=== PATIENT | female | born 1995 | race Caucasian/White ===

== ENCOUNTER 2017-10-14 18:03 | Outpatient (CLI) | payer BC ==
[2017-10-14 19:13] LABS: ADD UMIC YES; UR ASCORBIC ACID NEGATIVE (NEGATIVE); UR BACTERIA FEW /HPF (NONE SEEN); UR BILIRUBIN (Dip) NEGATIVE (NEGATIVE); UR BLOOD (Dip) NEGATIVE (NEGATIVE); UR BUDDING YEAST FEW /HPF (NONE SEEN); UR CALCIUM OXALATE CRYSTAL FEW /HPF (NONE SEEN); UR CLARITY CLOUDY (CLEAR); UR COLOR AMBER (YELLOW); UR GLUCOSE (Dip) NEGATIVE (NEGATIVE); UR KETONES (Dip) NEGATIVE (NEGATIVE); UR LEUKOCYTE ESTERASE (Dip) 3+ Leu/ul (NEGATIVE); UR MUCUS MODERATE /HPF (NONE SEEN); UR NITRITE (Dip) NEGATIVE (NEGATIVE); UR RBC 31 /HPF (0-5); UR SPECIFIC GRAVITY (Dip) 1.029 (1.003-1.030); UR SQUAMOUS EPITHELIAL CELL MANY /HPF (FEW); UR TOTAL PROTEIN (Dip) 1+ mg/dl (NEGATIVE); UR UROBILINOGEN (Dip) 1+ mg/dL (NEGATIVE); UR WBC 121 /HPF (0-5)
[2017-10-14] MEDS: LACTATED RINGER'S 1,000 ML IV (20:41)
[2017-10-14] MEDS: CEFAZOLIN 2 GM/50 ML (PMX) 50 ML IVPB (21:22)
[2017-10-14] MEDS ORDERED: LACTATED RINGER'S 1,000 ML IV (21:30)
[2017-10-14] MEDS ORDERED: TERBUTALINE 1 ML (23:48)
[2017-10-14] MEDS: TERBUTALINE 1 MG/ML INJ SC (23:54)
== END 2017-10-15 01:02 | disposition home or self-care (01) ==
LOC: OBT 18:03 → L-D 18:04
DX: O23.43 Unspecified infection of urinary tract in pregnancy, third trimester (principal); O36.8130 Decreased fetal movements, third trimester, not applicable or unspecified; O47.1 False labor at or after 37 completed weeks of gestation; Z3A.30 30 weeks gestation of pregnancy
CPT/HCPCS: 36415; 76817; 76818; 81001; 87086; 96360; 96361; 96372

== ENCOUNTER 2017-11-21 11:58 | Inpatient (IN) | payer BC ==
[2017-11-21] MEDS ORDERED: LIDOCAINE 1% (MPF) 30 ML INJ INJ (16:30)
[2017-11-21] MEDS ORDERED: MISOPROSTOL 200 MCG TAB PR (16:30)
[2017-11-21] MEDS ORDERED: IBUPROFEN 600 MG TAB PO (16:30)
[2017-11-21] MEDS ORDERED: BUTORPHANOL 2 MG INJ IV (16:30)
[2017-11-21] MEDS ORDERED: CARBOPROST 250 MCG INJ IM (16:30)
[2017-11-21] MEDS ORDERED: METHYLERGONOVINE 0.2 MG INJ IM (16:30)
[2017-11-21] MEDS ORDERED: OXYTOCIN 30 UNITS/LR 500 ML IV ×3 (16:30)
[2017-11-21] MEDS ORDERED: AMPICILLIN 2 GM/NS (PMX) 100 ML IV (16:30)
[2017-11-21 17:05] LABS: ADD MAN DIFF? NO
[2017-11-21] MEDS: LACTATED RINGER'S 1,000 ML IV* ×2 (17:06→20:12)
[2017-11-21 17:08] LABS: WHITE BLOOD COUNT 10.3 10^3/ul (4.8-10.8)
[2017-11-21 17:08] LABS: BASOPHILS % 0.2 % (0.0-2.0); EOSINOPHILS % 0.4 % (0.0-7.0); HEMATOCRIT 35.9 % (37.0-47.0); HEMOGLOBIN 11.5 g/dl (12.0-16.0); LYMPHOCYTES # 1.8 10^3/ul (0.8-2.9); LYMPHOCYTES % 17.7 % (15.0-51.0); MEAN CORPUSCULAR HEMOGLOBIN 25.3 pg (29.0-33.0); MEAN CORPUSCULAR VOLUME 78.9 fl (82.0-101.0); MEAN PLATELET VOLUME 11.9 fl (7.4-10.4); MONOCYTE # 0.5 10^3/ul (0.3-0.9); MONOCYTES % 4.8 % (0.0-11.0); NEUTROPHIL # 7.9 10^3/ul (1.6-7.5); NEUTROPHILS % 76.5 % (39.0-77.0); PLATELET COUNT 293 10^3/UL (140-415); RED BLOOD COUNT 4.55 10^6/ul (4.20-5.40); RED CELL DISTRIBUTION WIDTH 15.4 % (11.5-14.5)
[2017-11-21 17:27] LABS: INR 0.93; PROTIME 12.5 Sec (11.9-14.9)
[2017-11-21 17:28] LABS: PARTIAL THROMBOPLASTIN TIME 30.4 Sec (25.0-35.0)
[2017-11-21] MEDS ORDERED: AMPICILLIN 1 GM/NS (PMX) 50 ML IV (20:30)
[2017-11-22] MEDS: LACTATED RINGER'S 1,000 ML IV* (01:12)
[2017-11-22 08:35] LABS: HEPATITIS B SURFACE ANTIGEN NEGATIVE (NEGATIVE)
[2017-11-22 15:16] LABS: RAPID PLASMA REAGIN NONREACTIVE (NR)
== END 2017-11-22 12:15 | disposition home or self-care (01) | DRG 782 ==
LOC: OBT 11:58 → L-D 11:58 → OBT 15:50 → L-D 15:50
PROVIDERS: Obstetrics & Gynecology
DX: O41.03X0 Oligohydramnios, third trimester, not applicable or unspecified (principal); Z3A.39 39 weeks gestation of pregnancy
CPT/HCPCS: 76815; 76816; 76818; 85025; 85610; 85730; 86592; 86900; 86901; 87340

== ENCOUNTER 2017-11-25 21:24 | Inpatient (IN) | payer BC ==
[2017-11-25] MEDS ORDERED: BUTORPHANOL 2 MG INJ IV (22:00)
[2017-11-25] MEDS ORDERED: CARBOPROST 250 MCG INJ IM (22:00)
[2017-11-25] MEDS ORDERED: MISOPROSTOL 200 MCG TAB PR (22:00)
[2017-11-25] MEDS ORDERED: METHYLERGONOVINE 0.2 MG INJ IM (22:00)
[2017-11-25] MEDS ORDERED: OXYTOCIN 30 UNITS/LR 500 ML IV ×2 (22:00→23:00)
[2017-11-25] MEDS ORDERED: LIDOCAINE 1% (MPF) 30 ML INJ INJ (22:00)
[2017-11-25] MEDS: LACTATED RINGER'S 1,000 ML IV* ×2 (22:00)
[2017-11-25] MEDS ORDERED: OXYCODONE/ASPIRIN (4.88/325) TAB PO (23:00)
[2017-11-25] MEDS ORDERED: IBUPROFEN 600 MG TAB PO (23:00)
[2017-11-25 23:03] LABS: ADD MAN DIFF? NO
[2017-11-25 23:10] LABS: BASOPHILS % 0.2 % (0.0-2.0); EOSINOPHILS % 0.1 % (0.0-7.0); HEMATOCRIT 33.8 % (37.0-47.0); HEMOGLOBIN 11.1 g/dl (12.0-16.0); LYMPHOCYTES # 2.1 10^3/ul (0.8-2.9); LYMPHOCYTES % 22.7 % (15.0-51.0); MEAN CORPUSCULAR HEMOGLOBIN 26.1 pg (29.0-33.0); MEAN CORPUSCULAR HGB CONC 32.8 g/dl (32.0-37.0); MEAN CORPUSCULAR VOLUME 79.3 fl (82.0-101.0); MEAN PLATELET VOLUME 11.7 fl (7.4-10.4); MONOCYTE # 0.6 10^3/ul (0.3-0.9); MONOCYTES % 6.5 % (0.0-11.0); NEUTROPHIL # 6.5 10^3/ul (1.6-7.5); NEUTROPHILS % 70.2 % (39.0-77.0); PLATELET COUNT 250 10^3/UL (140-415); RED BLOOD COUNT 4.26 10^6/ul (4.20-5.40)
[2017-11-25 23:10] LABS: WHITE BLOOD COUNT 9.2 10^3/ul (4.8-10.8)
[2017-11-25] MEDS: AMPICILLIN 2 GM/NS (PMX) 100 ML IV (23:18)
[2017-11-25 23:30] LABS: INR 0.93; PROTIME 12.5 Sec (11.9-14.9)
[2017-11-25 23:31] LABS: PARTIAL THROMBOPLASTIN TIME 30.1 Sec (25.0-35.0)
[2017-11-25] MEDS ORDERED: FENTAnyl 2MCG/ML-ROPIV 0.2% 100 ML (23:58)
[2017-11-26] LABS: HEPATITIS B SURFACE ANTIGEN NEGATIVE (NEGATIVE)
[2017-11-26] MEDS: LACTATED RINGER'S 1,000 ML IV* (00:25)
[2017-11-26] MEDS ORDERED: ZOLPIDEM 5 MG TAB PO ×2 (00:30→09:30)
[2017-11-26] MEDS ORDERED: NALOXONE (0.4 MG/ML) INJ IV (00:30)
[2017-11-26] MEDS ORDERED: DIPHENHYDRAMINE 50 MG INJ IV ×2 (00:30→09:30)
[2017-11-26] MEDS ORDERED: ONDANSETRON 4 MG INJ IV ×2 (00:30→09:30)
[2017-11-26] MEDS ORDERED: FENTAnyl 2MCG/ML-ROPIV 0.2% 100 ML BAG EPI (00:30)
[2017-11-26] MEDS ORDERED: AMPICILLIN 1 GM/NS (PMX) 50 ML IV (02:00)
[2017-11-26] MEDS: OXYTOCIN 30 UNITS/LR 500 ML IV ×2 (03:08→04:39)
[2017-11-26] MEDS ORDERED: DEXTROSE 5%-LR 1,000 ML IV (09:09)
[2017-11-26] MEDS ORDERED: LACTATED RINGER'S 1,000 ML IV* (09:09)
[2017-11-26] MEDS ORDERED: CARBOPROST 250 MCG INJ IM (09:30)
[2017-11-26] MEDS ORDERED: OXYCODONE/ASPIRIN (4.88/325) TAB PO (09:30)
[2017-11-26] MEDS ORDERED: MISOPROSTOL 200 MCG TAB PR (09:30)
[2017-11-26] MEDS ORDERED: OXYTOCIN 30 UNITS/LR 500 ML IV (09:30)
[2017-11-26] MEDS ORDERED: METHYLERGONOVINE 0.2 MG INJ IM (09:30)
[2017-11-26] MEDS ORDERED: ACETAMINOPHEN 325 MG TAB PO (09:30)
[2017-11-26] MEDS ORDERED: DIBUCAINE 1% 30 GM OINT PR (09:30)
[2017-11-26] MEDS: SENNA/DOCUSATE NA (8.6MG/50MG) TAB PO (09:35)
[2017-11-26] MEDS: WITCH HAZEL/GLYCERIN PAD PR (09:35)
[2017-11-26] MEDS: BENZOCAINE 20% 56 ML SPRAY TOP (12:01)
[2017-11-26] MEDS: IBUPROFEN 600 MG TAB PO ×3 (12:02→23:55)
[2017-11-26] MEDS: LANOLIN 7 GM TUBE TOP (12:02)
[2017-11-26 18:23] LABS: RAPID PLASMA REAGIN NONREACTIVE (NR)
[2017-11-27] MEDS: IBUPROFEN 600 MG TAB PO ×4 (05:46→23:17)
[2017-11-27 09:06] LABS: ADD MAN DIFF? NO
[2017-11-27 09:14] LABS: BASOPHILS % 0.2 % (0.0-2.0); EOSINOPHILS # 0.2 10^3/ul (0.0-0.5); EOSINOPHILS % 1.8 % (0.0-7.0); HEMATOCRIT 31.8 % (37.0-47.0); LYMPHOCYTES # 2.7 10^3/ul (0.8-2.9); LYMPHOCYTES % 28.1 % (15.0-51.0); MEAN CORPUSCULAR HEMOGLOBIN 25.3 pg (29.0-33.0); MEAN CORPUSCULAR HGB CONC 31.4 g/dl (32.0-37.0); MEAN CORPUSCULAR VOLUME 80.5 fl (82.0-101.0); MONOCYTE # 0.6 10^3/ul (0.3-0.9); NEUTROPHIL # 6.1 10^3/ul (1.6-7.5); NEUTROPHILS % 63.5 % (39.0-77.0); PLATELET COUNT 244 10^3/UL (140-415); RED BLOOD COUNT 3.95 10^6/ul (4.20-5.40); RED CELL DISTRIBUTION WIDTH 15.8 % (11.5-14.5)
[2017-11-27 09:14] LABS: WHITE BLOOD COUNT 9.7 10^3/ul (4.8-10.8)
[2017-11-27] MEDS: MEDROXYPROGESTERONE 150 MG INJ SYG IM (11:32)
[2017-11-27] MEDS: LANOLIN 7 GM TUBE TOP (23:17)
[2017-11-28] MEDS: IBUPROFEN 600 MG TAB PO ×2 (05:39→12:00)
[2017-11-28] MEDS: MEASLES,MUMPS,RUBELLA VACCINE INJ SC* (09:00)
[2017-11-28] MEDS: DIPHTH/TET/ACEL PERTUSS (ADULT) 0.5 ML VIAL IM* (12:01)
== END 2017-11-28 14:45 | disposition home or self-care (01) | DRG 775 ==
LOC: OBT 21:24 → L-D 21:26 → PP1 11-26 14:11 → OBT 22:00 → L-D 22:00
PROVIDERS: Obstetrics & Gynecology
PROC: 10E0XZZ Delivery of Products of Conception, External Approach (ICD-10-PCS; principal; 2017-11-26)
DX: O80 Encounter for full-term uncomplicated delivery (principal); Z3A.37 37 weeks gestation of pregnancy; Z37.0 Single live birth
CPT/HCPCS: 62319; 76815; 85025; 85610; 85730; 86592; 86850; 86900; 86901; 87340; 90715

== ENCOUNTER 2018-02-20 22:47 | Emergency (ER) | payer BC ==
[2018-02-21] MEDS: IBUPROFEN 600 MG TAB PO (00:06)
== END 2018-02-21 01:20 | disposition home or self-care (01) ==
LOC: FTE 22:47
DX: M25.572 Pain in left ankle and joints of left foot (principal)
CPT/HCPCS: 73610; 99283-25

== ENCOUNTER 2018-12-15 19:59 | Emergency (ER) | payer SELFPAY, BC ==
[2018-12-15 22:10] LABS: URINE BLOOD (Dip) POC Trace-intact (NEGATIVE); URINE GLUCOSE (Dip) POC Negative (NEGATIVE); URINE KETONES (Dip) POC Negative (NEGATIVE); URINE LEUKOCYTE EST (Dip) POC 1+ (NEGATIVE); URINE NITRITE (Dip) POC Negative (NEGATIVE); URINE TOTAL PROTEIN POC 1+ (NEGATIVE)
[2018-12-15 22:10] LABS: URINE PH (Dip) POC 6.5 (5.0-8.5)
== END 2018-12-15 22:56 | disposition home or self-care (01) ==
LOC: FTE 19:59
DX: N39.0 Urinary tract infection, site not specified (principal)
CPT/HCPCS: 81003; 81025; 87086; 99283